=== PATIENT | female | born 1935 | race Caucasian/White ===

== ENCOUNTER → 2020-08-17 | Outpatient (CLI) | payer MEDICARE ==
[~2020-08-17] MED LIST: OMNICEF 300 MG300 MG PO
== END ==
LOC: RAD 15:23
DX: M25.571 Pain in right ankle and joints of right foot (principal); M25.572 Pain in left ankle and joints of left foot; M79.671 Pain in right foot; M79.672 Pain in left foot; M21.071 Valgus deformity, not elsewhere classified, right ankle; M21.272 Flexion deformity, left ankle and toes; M21.271 Flexion deformity, right ankle and toes
CPT/HCPCS: 73610; 73630

== ENCOUNTER → 2020-08-28 | Outpatient (CLI) | payer MEDICARE | LOC: KOH-I 14:09 | DX: R41.3 Other amnesia (principal) | CPT/HCPCS: 70450 ==

== ENCOUNTER 2020-10-09 17:35 | Emergency (ER) | payer MEDICARE ==
[2020-10-09 18:47] LABS: HEMOGLOBIN 13.3 gm/dl (12.3-15.3); RED BLOOD COUNT 4.2 M/UL (4.00-5.10); WHITE BLOOD COUNT 6.6 K/UL (4.5-11.0)
[2020-10-09 19:07] LABS: BUN/CREATININE RATIO 26 (0-10)
[2020-10-09] MEDS ORDERED: OMNICEF 300 MG300 MG PO (21:08)
== END 2020-10-10 00:39 | disposition home or self-care (01) ==
LOC: ER1 17:35
PROVIDERS: Emergency Medicine
DX: N30.00 Acute cystitis without hematuria (principal); F29 Unspecified psychosis not due to a substance or known physiological condition; F03.90 Unspecified dementia, unspecified severity, without behavioral disturbance, psychotic disturbance, mood disturbance, and anxiety; Z20.822 Contact with and (suspected) exposure to COVID-19
CPT/HCPCS: 36415; 70450; 71045; 80053; 80307; 81001; 82550; 82553; 83874; 84484; 85025; 93005; 99285; G0480; U0002

== ENCOUNTER 2020-12-26 19:53 | Inpatient (IN) | payer MEDICARE, OTHER ==
[~2020-12-26] VITALS: Ht 167.6 cm; Wt 58.7 kg
[2020-12-26 22:57] LABS: HEMOGLOBIN 11.5 gm/dl (12.3-15.3); RED BLOOD COUNT 3.67 M/UL (4.00-5.10); WHITE BLOOD COUNT 5.5 K/UL (4.5-11.0)
[2020-12-26 23:15] LABS: BUN/CREATININE RATIO 33 (0-10)
[2020-12-27 14:00] LABS: HEMOGLOBIN 12.4 gm/dl (12.3-15.3); RED BLOOD COUNT 3.9 M/UL (4.00-5.10); WHITE BLOOD COUNT 5.7 K/UL (4.5-11.0)
[2020-12-27 14:20] LABS: BUN/CREATININE RATIO 22 (0-10)
[2020-12-27] MEDS ORDERED: REMERON15 MG PO (14:22)
[2020-12-27] MEDS ORDERED: ARICEPT10 MG PO (14:23)
[2020-12-27] MEDS ORDERED: LEXAPRO TAB 1010 MG PO (14:23)
[2020-12-27] MEDS ORDERED: DIVALPROEX SOD125 M1 PO (14:23)
[2020-12-27] MEDS ORDERED: RISPERDAL 0.20.25 MG PO (14:24)
[2020-12-27] MEDS ORDERED: LEVOTHYROXINE150 MCG PO (14:24)
[2020-12-28 06:41] LABS: HEMOGLOBIN 12.8 gm/dl (12.3-15.3); RED BLOOD COUNT 4.05 M/UL (4.00-5.10); WHITE BLOOD COUNT 6.7 K/UL (4.5-11.0)
[2020-12-28 07:12] LABS: BUN/CREATININE RATIO 29 (0-10)
[2020-12-28] MEDS ORDERED: DOXYCYCLINE HY100 MG PO (11:24)
[2020-12-29 05:10] LABS: HEMOGLOBIN 12.1 gm/dl (12.3-15.3); RED BLOOD COUNT 3.88 M/UL (4.00-5.10); WHITE BLOOD COUNT 5.6 K/UL (4.5-11.0)
[2020-12-29 05:35] LABS: BUN/CREATININE RATIO 37 (0-10)
--- NOTE | 2020-12-29 10:48 | NUR ---
fall precautions in placed
--- NOTE | 2020-12-29 14:19 | NUR ---
reports given to admitting nurse alfredo villalta
--- NOTE | 2020-12-29 18:50 | NUR ---
PATIENT RESTING IN BED WITH NO SIGNS OF DISTRESS NOTED. PATIENT HAS NO COMPLAINTS AT THIS TIME. AWAITING AMBULANCE FOR TRANSFER. NO CHANGES WITH PATIENT AT THIS TIME.
== END 2020-12-29 21:25 | DRG 177 ==
LOC: ER1 19:53 → CDU 12-27 06:29 → M/S 12-27 06:29 → CDU 12-27 06:29 → M/S 12-27 19:14
PROVIDERS: Emergency Medicine; Internal Medicine; ADMIT Internal Medicine
PROC: XW033E5 Introduction of Remdesivir Anti-infective into Peripheral Vein, Percutaneous Approach, New Technology Group 5 (ICD-10-PCS; principal; 2020-12-28)
PROC: 3E0333Z Introduction of Anti-inflammatory into Peripheral Vein, Percutaneous Approach (ICD-10-PCS; principal; 2020-12-28)
DX: U07.1 COVID-19 (principal); J12.82 Pneumonia due to coronavirus disease 2019; J96.01 Acute respiratory failure with hypoxia; J98.11 Atelectasis; E44.0 Moderate protein-calorie malnutrition; Z20.822 Contact with and (suspected) exposure to COVID-19; Z66 Do not resuscitate; F03.90 Unspecified dementia, unspecified severity, without behavioral disturbance, psychotic disturbance, mood disturbance, and anxiety; F25.1 Schizoaffective disorder, depressive type; J20.9 Acute bronchitis, unspecified; E03.9 Hypothyroidism, unspecified; Z74.01 Bed confinement status; Z88.0 Allergy status to penicillin; Z88.8 Allergy status to other drugs, medicaments and biological substances; Z68.20 Body mass index [BMI] 20.0-20.9, adult
CPT/HCPCS: 36415; 36600; 51701; 71045; 80053; 81001; 82728; 82803; 83605; 83690; 83735; 84100; 85025; 85379; 86140; 87040; 87086; 96374; 96375; 99285; J1100; J1335; J1650; J2270; J2405; J7030; Q9967; U0002

== ENCOUNTER 2021-02-01 20:49 | Inpatient (IN) | payer MEDICARE, OTHER ==
[~2021-02-01] VITALS: Ht 167.6 cm; Wt 59.0 kg
[~2021-02-01 20:49] MED LIST changes: +ARICEPT10 MG PO; +DIVALPROEX SOD125 M1 PO; +DOXYCYCLINE HY100 MG PO; +LEVOTHYROXINE150 MCG PO; +LEXAPRO TAB 1010 MG PO; +REMERON15 MG PO; +RISPERDAL 0.20.25 MG PO
[2021-02-01 22:20] LABS: HEMOGLOBIN 12.7 gm/dl (12.3-15.3); RED BLOOD COUNT 3.93 M/UL (4.00-5.10); WHITE BLOOD COUNT 15.8 K/UL (4.5-11.0)
[2021-02-01 22:59] LABS: BUN/CREATININE RATIO 24 (0-10)
[2021-02-02] MEDS ORDERED: DRONABINOL5 MG PO (04:58)
[2021-02-02] MEDS ORDERED: TYLENOL325 MG PO (05:09)
[2021-02-02] MEDS ORDERED: LEVOTHYROXINE150 MC1 PO (05:12)
--- NOTE | 2021-02-02 05:31 | NUR ---
NOTIFIED DR THOMPSON THAT PT MEDS ARE READY TO RECONCILE.
[2021-02-03 07:01] LABS: HEMOGLOBIN 12.1 gm/dl (12.3-15.3); RED BLOOD COUNT 3.8 M/UL (4.00-5.10); WHITE BLOOD COUNT 14.6 K/UL (4.5-11.0)
[2021-02-03 07:30] LABS: BUN/CREATININE RATIO 25 (0-10)
[2021-02-04 08:08] LABS: WHITE BLOOD COUNT 16.3 K/UL (4.5-11.0)
[2021-02-04 08:10] LABS: HEMOGLOBIN 9.9 gm/dl (12.3-15.3); RED BLOOD COUNT 3.2 M/UL (4.00-5.10)
[2021-02-04 08:56] LABS: BUN/CREATININE RATIO 36 (0-10)
[2021-02-05 04:26] LABS: HEMOGLOBIN 9.4 gm/dl (12.3-15.3); RED BLOOD COUNT 2.97 M/UL (4.00-5.10)
[2021-02-05 04:44] LABS: BUN/CREATININE RATIO 44 (0-10)
[2021-02-05 04:46] LABS: WHITE BLOOD COUNT 11.2 K/UL (4.5-11.0)
[2021-02-05] MEDS ORDERED: ENOXAPARIN40 MG/0.4 SC (12:16)
[2021-02-05] MEDS ORDERED: VITAMIN D325 MCG PO (12:16)
[2021-02-05] MEDS ORDERED: OXYCODONE HCL5 MG PO (14:33)
--- NOTE | 2021-02-05 15:52 | NUR ---
REPORT CALLED TO RAFA PERKINS AT [facility] AT THIS TIME. [facility] ACEPTED TRANSPORT OF PATIENT BACK TO [facility].
== END 2021-02-05 16:50 | DRG 521 ==
LOC: ER1 20:49 → CDU 02-02 00:03 → M/S 02-02 00:03
PROVIDERS: Emergency Medicine; Orthopaedic Surgery; Physician Assistant; ADMIT Internal Medicine
PROC: 0SRR0J9 Replacement of Right Hip Joint, Femoral Surface with Synthetic Substitute, Cemented, Open Approach (ICD-10-PCS; principal; 2021-02-03 14:15)
DX: S72.001A Fracture of unspecified part of neck of right femur, initial encounter for closed fracture (principal); J96.01 Acute respiratory failure with hypoxia; E43 Unspecified severe protein-calorie malnutrition; Z20.822 Contact with and (suspected) exposure to COVID-19; D62 Acute posthemorrhagic anemia; Z66 Do not resuscitate; E87.5 Hyperkalemia; F20.9 Schizophrenia, unspecified; G30.9 Alzheimer's disease, unspecified; F02.80 Dementia in other diseases classified elsewhere, unspecified severity, without behavioral disturbance, psychotic disturbance, mood disturbance, and anxiety; W18.39XA Other fall on same level, initial encounter; E03.9 Hypothyroidism, unspecified; Z87.442 Personal history of urinary calculi; Z68.21 Body mass index [BMI] 21.0-21.9, adult
CPT/HCPCS: 36415; 36600; 70450; 71045; 72100; 72170; 73502; 73552; 80048; 80053; 81001; 82140; 82310; 82550; 82553; 82607; 82746; 82803; 83874; 83880; 84439; 84443; 84484; 85025; 85610; 86140; 86850; 86900; 86901; 87040; 87086; 93005; 96374; 96375; 97110-GP-CQ; 97162; 97166; 97530-GP-CQ; 99284; C1776; J1100; J1650; J2001; J2270; J2405; J2704; J2710; J2795; J3010; J7120; U0002